=== PATIENT | male | born 1995 | race Caucasian/White ===

== ENCOUNTER 2019-03-03 09:53 | Outpatient (CLI) | payer OTHER ==
--- NOTE | 2019-03-03 10:39 | ULT ---
Exam: Testicular/scrotal ultrasound HISTORY: Right groin pain/testicular pain since December that is getting better. COMPARISON: None TECHNIQUE: Multiplanar grayscale and color Doppler images were obtained in a testicular/scrotal ultra sound. Spectral analysis of the Doppler waveforms of the testicles were performed. FINDINGS: Right testicle: Normal in echogenicity. No focal mass. Normal internal flow. Left testicle: Normal in echogenicity. No focal mass. Normal internal flow. Right epididymis. Normal internal flow. 3 mm cyst in the right epididymis. Left epididymis. Normal internal flow. No epididymal cyst. No hydrocele is present. No varicocele is present. IMPRESSION: Small right epididymal cyst
== END 2019-03-03 09:54 | disposition home or self-care (01) ==
LOC: SCSULT 09:53
PROVIDERS: ATTEND Family Medicine
DX: N50.811 Right testicular pain (principal); N50.3 Cyst of epididymis
CPT/HCPCS: 76870; 93976